=== PATIENT | female | born 1955 | race Caucasian/White ===

== ENCOUNTER 2018-05-04 10:15 | Emergency (ER) | payer OTHER ==
[~2018-05-04] VITALS: Ht 162.6 cm; Wt 96.1 kg
[2018-05-04 10:19] VITALS: Ht 162.6 cm; Wt 96.1 kg
[2018-05-04] MEDS ORDERED: KETOROLAC 30 MG INJ IV STA (10:56)
[2018-05-04] MEDS ORDERED: SOD CHLORIDE 0.9% 1,000 ML IV STA (10:56)
[2018-05-04] MEDS ORDERED: ASPI-817 PO (11:27)
[2018-05-04] MEDS ORDERED: TRAM50TA PO (11:27)
[2018-05-04] MEDS ORDERED: LIRA0.6P2 SQ (11:27)
[2018-05-04] MEDS ORDERED: MTF1000T PO (11:28)
[2018-05-04] MEDS ORDERED: SERT50TA6 PO (11:28)
[2018-05-04] MEDS ORDERED: INSU100I33 SC (11:28)
[2018-05-04] MEDS ORDERED: CALC500T91 PO (11:29)
[2018-05-04] MEDS ORDERED: OMEG-135 PO (11:30)
[2018-05-04] MEDS ORDERED: GABA300C16 PO (11:30)
[2018-05-04] MEDS ORDERED: OXYB5TAB22 PO (11:31)
[2018-05-04] MEDS ORDERED: ZOLP5TAB7 PO (11:31)
[2018-05-04] MEDS ORDERED: CARV12.579 PO (11:31)
[2018-05-04] MEDS ORDERED: MELO15TA30 PO (11:32)
[2018-05-04] MEDS ORDERED: CHOL200078 PO (11:32)
[2018-05-04] MEDS ORDERED: OMEP20CA16 PO (11:35)
[2018-05-04] MEDS ORDERED: LOSA1TAB22 PO (11:36)
[2018-05-04 12:10] VITALS: BP 138/75; PULSE 68; RESP 19
--- NOTE | 2018-05-04 12:47 | ERD ---
ER Documentation Chief Complaint Chief Complaint COUGH , CHEST CONGESTION , BACK PAIN , ABD PAIN X 2 WEEKS HPI Patient is a 62-year-old female with arthritis, diabetes, and hypertension who presents with a "lung problem". The family says she has had this before April 11. She has had chest pressure which radiates to her head. She sometimes feels "cold and frozen". She has abdominal pain and flank pain. She feels hot at times. She thought "maybe I have pneumonia". She does report fever but none today. She has a primary doctor. ROS All systems reviewed and are negative except as per history of present illness. Medications Home Meds Reported Medications Losartan-Hydrochlorothiazide (Losartan-HCTZ) 50-12.5 Mg Tab, 1 TAB PO DAILY, TAB 05/04/18 Omeprazole* (Omeprazole*) 20 Mg Capsule.dr, 20 MG PO AC BREAKFAST, #30 CAP 05/04/18 Meloxicam* (Mobic*) 15 Mg Tablet, 15 MG PO DAILY, #30 TAB 05/04/18 Cholecalciferol (Vitamin D3) (Vitamin D3) 2,000 Unit Tab.chew, 2000 UNIT PO DAILY, TAB.CHEW 05/04/18 Carvedilol* (Carvedilol*) 12.5 Mg Tablet, 12.5 MG PO BID, #60 TAB 05/04/18 Zolpidem Tartrate* (Zolpidem Tartrate*) 5 Mg Tablet, 5 MG PO QHS PRN for INSOMNIA, #30 TAB 05/04/18 Oxybutynin Chloride* (Ditropan* XL) 5 Mg Tabsr, 5 MG PO DAILY, TAB.SA 05/04/18 Gabapentin* (Gabapentin*) 300 Mg Capsule, 300 MG PO QHS, #60 CAP 05/04/18 [place]-3 Fatty Acids/Fish Oil (Fish Oil 1,000 mg Capsule) 1 Each Capsule, 1 EACH PO BID, CAP 05/04/18 Calcium Carbonate (Wbut-Vzp-860) 500 Mg Tablet, 500 MG PO BID, TAB 05/04/18 Metformin* (Glucophage*) 1,000 Mg Tablet, 1000 MG PO BID, #60 TAB 05/04/18 Insulin Glargine,Hum.rec.anlog (Basaglar Kwikpen U-100) 100 Unit/1 Ml Insuln.pen, 60 UNIT SC QPM, EA 05/04/18 Sertraline Hcl* (Sertraline Hcl*) 50 Mg Tablet, 50 MG PO DAILY, #30 TAB 05/04/18 Liraglutide (Victoza 3-Jay) 0.6 Mg/0.1 Ml Pen.injctr, 1.8 MG SQ DAILY, SYR 05/04/18 Aspirin* (Aspirin* EC) 81 Mg Tablet.dr, 81 MG PO DAILY, TAB 05/04/18 Tramadol Hcl* (Ultram*) 50 Mg Tablet, 50 MG PO DAILY PRN for PAIN, TAB 05/04/18 Allergies Allergies: Coded Allergies: No Known Allergy (Unverified , 05/04/18) PMhx/Soc History of Surgery: Yes (GALLBLADDER SURGERY) Hx Cardiac Disorders: Yes (HYPERTENSION, DIABETES) Hx Miscellaneous Medical Probl: Yes (LIVER PORBLEMS) Hx Alcohol Use: No Hx Substance Use: No Hx Tobacco Use: No Smoking Status: Never smoker FmHx Family History: diabetes Physical Exam Vitals Vital Signs Date Temp Pulse Resp B/P (MAP) Pulse Ox O2 O2 Flow FiO2 Time Delivery Rate 05/04/18 68 19 138/75 97 Room Air 12:10 (96) 05/04/18 98.2 105 18 128/72 97 10:19 (90) Physical Exam Const: No acute distress Head: Atraumatic Eyes: Normal Conjunctiva ENT: Normal External Ears, Nose and Mouth. Neck: Full range of motion. No meningismus. Resp: Clear to auscultation bilaterally Cardio: Regular rate and rhythm, no murmurs Abd: Soft, non tender, non distended. Normal bowel sounds Skin: No petechiae or rashes Back: No midline or flank tenderness Ext: No cyanosis, or edema Neur: Awake and alert Psych: Depressed affect Result Diagram: 05/04/18 1111 05/04/18 1111 Results 24 hrs Laboratory Tests Test 05/04/18 11:11 White Blood Count 5.6 10^3/ul Red Blood Count 4.18 10^6/ul Hemoglobin 12.7 g/dl Hematocrit 37.9 % Mean Corpuscular Volume 90.7 fl Mean Corpuscular Hemoglobin 30.4 pg Mean Corpuscular Hemoglobin Concent 33.5 g/dl Red Cell Distribution Width 12.5 % Platelet Count 254 10^3/UL Mean Platelet Volume 9.9 fl Immature Granulocytes % 0.400 % Neutrophils % 56.5 % Lymphocytes % 31.0 % Monocytes % 8.2 % Eosinophils % 3.4 % Basophils % 0.5 % Nucleated Red Blood Cells % 0.0 /100WBC Immature Granulocytes # 0.020 10^3/ul Neutrophils # 3.2 10^3/ul Lymphocytes # 1.8 10^3/ul Monocytes # 0.5 10^3/ul Eosinophils # 0.2 10^3/ul Basophils # 0.0 10^3/ul Nucleated Red Blood Cells # 0.0 10^3/ul Urine Color YELLOW Urine Clarity SLIGHTLY CLOUDY Urine pH 5.0 Urine Specific [place] 1.016 Urine Ketones NEGATIVE mg/dL Urine Nitrite NEGATIVE mg/dL Urine Bilirubin NEGATIVE mg/dL Urine Urobilinogen NEGATIVE mg/dL Urine Leukocyte Esterase 2+ Kylee/ul Urine Microscopic RBC 1 /HPF Urine Microscopic WBC 3 /HPF Urine Squamous Epithelial Cells FEW /HPF Urine Bacteria FEW /HPF Urine Mucus FEW /HPF Urine Hemoglobin 1+ mg/dL Urine Glucose NEGATIVE mg/dL Urine Total Protein NEGATIVE mg/dl Sodium Level 142 mmol/L Potassium Level 5.2 mmol/L Chloride Level 102 mmol/L Carbon Dioxide Level 27 mmol/L Anion Gap 13 Blood Urea Nitrogen 17 mg/dl Creatinine 0.77 mg/dl Est Glomerular Filtrat Rate mL/min > 60 mL/min Glucose Level 153 mg/dl Calcium Level 10.0 mg/dl Total Bilirubin 0.4 mg/dl Direct Bilirubin 0.00 mg/dl Indirect Bilirubin 0.4 mg/dl Aspartate Amino Transf (AST/SGOT) 58 IU/L Alanine Aminotransferase (ALT/SGPT) 67 IU/L Alkaline Phosphatase 56 IU/L Troponin I < 0.012 ng/ml Total Protein 7.9 g/dl Albumin 4.5 g/dl Globulin 3.40 g/dl Albumin/Globulin Ratio 1.32 Lipase 273 U/L Current Medications Medications Dose Sig/Yelena Start Time Status Last (Trade) Ordered Route PRN Stop Time Admin Dose Reason Admin Sodium 1,000 ml @ Q1H STAT 05/04/18 DC 05/04/18 Chloride 1,000 mls/hr IV 10:56 11:23 05/04/18 11:55 Ketorolac 30 mg ONCE STAT 05/04/18 DC 05/04/18 Tromethamine IV 10:56 11:23 (Toradol) 05/04/18 10:57 Procedures/MDM EKG read by me: Rate/Rhythm: Regular rate and rhythm at a rate of 80 Intervals: Normal Impression: No evidence of ischemia or arrhythmia Chest x-ray shows no sign of pneumonia or pneumothorax per radiology. Ultrasound of the abdomen negative for surgical process per radiology. Patient is a 62-year-old female with hypertension, diabetes, and arthritis who presents with multiple complaints. She had a full workup with laboratory studies, EKG, chest x-ray, and abdominal ultrasound. I doubt pneumonia, pneumothorax, pulmonary embolism, acute coronary syndrome, or aortic dissection. I doubt serious intra-abdominal process. I do not believe the patient requires further workup or admission to the hospital at this time. She should follow-up with her primary doctor within 24-48 hours for reevaluation. Departure Diagnosis: Primary Impression: Flank pain Additional Impression: SOB (shortness of breath) Condition: Fair Patient Instructions: Flank Pain, Uncertain Cause Referrals: Dr. Stokes Additional Instructions: Call your primary care doctor TOMORROW for an appointment during the next 1-2 days.See the doctor sooner or return here if your condition worsens before your appointment time. CHAN LEMONS MD May 04, 2018 12:47
== END 2018-05-04 13:00 | disposition home or self-care (01) ==
LOC: E/R 10:15
DX: R10.9 Unspecified abdominal pain (principal); R06.02 Shortness of breath; I10 Essential (primary) hypertension; E11.9 Type 2 diabetes mellitus without complications; Z79.4 Long term (current) use of insulin; Z79.82 Long term (current) use of aspirin
CPT/HCPCS: 36415; 71045; 76700; 80053; 81001; 83690; 84484; 85025; 93005; 96374; J1885; J7030; Z7502